=== PATIENT | female | born 1955 | race Caucasian/White ===

== ENCOUNTER 2021-02-26 07:49 | Emergency (ER) | payer BC ==
[~2021-02-26] VITALS: Ht 160 cm; Wt 97.1 kg
[~2021-02-26 07:49] MED LIST: ALLEGRA ALLERGY60 MG PO; CHOLINE SR300 MG PO; CLOBETASOL EMOL15 GM TOP; GELATIN650 MG PO; HAIR, SKIN & N1 EAC1 PO; INOSITOL MISC; MAGNESIUM250 MG PO; METHIONINE MISC; MSM500 MG PO; VITAMIN B122500 MCG PO; VITAMIN D32000 UNI1 PO; VITAMIN D32000 UNIT PO; ZYRTEC10 MG PO; [UNRECOGNIZED DRUG - OTHER] PO
[2021-02-26] MEDS ORDERED: FLONASE ALLERG9.9 ML NAS (09:32)
== END 2021-02-26 09:48 | disposition home or self-care (01) ==
LOC: ED 07:49
DX: J30.9 Allergic rhinitis, unspecified (principal); Z91.040 Latex allergy status; Z88.5 Allergy status to narcotic agent
CPT/HCPCS: 71046; 80053; 84443; 85025; 99285-25

== ENCOUNTER 2023-05-11 06:50 | Day surgery (SDC) | payer BC ==
[2023-04-28 11:04] VITALS: BP 146/88
[~2023-05-11] VITALS: Ht 160 cm; Wt 97.3 kg
[2023-05-11] VITALS (8 sets, daily range): BP systolic 109–151; BP diastolic 51–80
[~2023-05-11 06:50] MED LIST changes: +CYMBALTA30 MG PO; +DICLOFENAC SODI75 MG PO; +FLONASE ALLERG9.9 ML NAS; +HYDROCHLOROTHIA25 MG PO
[2023-05-11] MEDS ORDERED: BIOTIN2500 MC1 PO (07:48)
[2023-05-11] MEDS ORDERED: VITAMIN D310 MC4 PO (07:48)
[2023-05-11] MEDS ORDERED: MULTIVITAMIN1 EACH PO (07:49)
[2023-05-11] MEDS ORDERED: OMEGA 3 FISH O1 EACH PO (07:49)
[2023-05-11] MEDS ORDERED: ASPIRIN325 MG PO (10:25)
[2023-05-11] MEDS ORDERED: HYDROMORPHONE HC2 MG PO (10:25)
[2023-05-11] MEDS ORDERED: DULOXETINE HCL30 MG PO (10:25)
[2023-05-11] MEDS ORDERED: SENNA LAX8.6 MG PO (10:25)
[2023-05-12 01:53] VITALS: BP 117/89
[2023-05-12 06:11] VITALS: BP 117/67
--- NOTE | 2023-05-13 08:14 | OR ---
[facility] [address] [place], [place] [address] Signed DATE OF OPERATION: 05/11/2023 SURGEON: Sravani Muniz MD PREOPERATIVE DIAGNOSIS: Severe degenerative joint disease, right knee. POSTOPERATIVE DIAGNOSIS: Severe degenerative joint disease, right knee. PROCEDURE PERFORMED: Right total knee arthroplasty with Freddy. REGIONAL MERCHANDISING MANAGER: ALESSANDRO Perez. Sobia was present and critical for all portions of the procedure. ANESTHESIA: Spinal. BLOOD LOSS: 175 mL. TOURNIQUET TIME: Zero. IMPLANTS: Ruthy Triathlon size two 9 mm polyethylene and 29 mm patella. BRIEF HISTORY: Slick is a 68-year-old female with progressive worsening of osteoarthritis. She had undergone extended none operative care with substantial improvement. Risks and benefits of operative treatment were discussed with her and she elected to proceed. Once consent was obtained, she was taken to the operating room. After adequate anesthesia, she was placed on the operating table on a hip bump. The leg was then prepped and draped in a standard sterile fashion. Standard anterior approach through a longitudinal incision was carried through skin and subcutaneous tissue. Skin flaps were developed medially and laterally. A low mid vastus arthrotomy was undertaken and the MCL was elevated of a sleeve to the posteromedial corner. The infrapatellar fat pad was excised and the anterior horns of the menisci were released as was the ACL. The PCL was found to be Electronically Signed By: SRAVANI MUNIZ MD 05/13/23 0814 PATIENT NAME: SLICK LOUIS OPERATIVE REPORT DATE OF : 53 REPORT #: [id number] PHYSICIAN: SRAVANI MUNIZ MD PCP: MICHAEL SEGURA NP REPORT IS CONFIDENTIAL AND NOT TO BE RELEASED WITHOUT AUTHORIZATION [facility] [address] [place], [place] [address] Signed intact. The navigation computer arrays were placed in the medial femoral condyle and proximal tibia. The leg was then registered with the computer, followed by the fine anatomic points of the knee. The pes valgus testing was undertaken. The knee was found to be fairly well balanced only minor and adjustments were made. The robot was then brought in the four straight cuts and followed by the 2 angle cuts were made with care taken to protect the patellar tendon and MCL. The bony remnants were removed as were any remaining osteophytes. The posterior osteophytes removed off the femur and the trials were positioned. The knee was taken through range of motion and found to be stable throughout. The patella was centered and tracked well. The patella was cut sized and drilled for a 29 patella. The distal femoral drill holes were completed and the proximal tibia was finished using the keel punch, followed by the drill holes. The trials were removed and the bone surfaces were cleansed. The tibia was impacted in position first followed by the polyethylene. The femur was impacted until it was well seated and then the patella was clamped. The knee was taken through range of motion. Again, the patella was found to be well centered. The wound was copiously irrigated with Surgiphor, followed by normal saline. The periarticular soft tissues were injected with 100 mL ropivacaine Toradol mixture. The On-Q pain pump was percutaneously placed into the adductor canal from the suprapatellar pouch. The arthrotomy was then closed using FiberWire followed by #2 StrataFix, the subcutaneous tissue with #0 StrataFix, and the skin with 3-0 Stratafix. The wound was sealed with LiquiBand and Steri-Strips. Wound was dressed with Acticoat 7 dressing, ABD, ABDs and Tejinder wrap. She tolerated the procedure well. All sponge, needle, and instrument counts were correct. Sravani Muniz MD BA/MODL /[id number] Copies: ~ Electronically Signed By: SRAVANI MUNIZ MD 05/13/23 0814 PATIENT NAME: SLICK LOUIS OPERATIVE REPORT DATE OF : 53 REPORT #: [id number] PHYSICIAN: SRAVANI MUNIZ MD PCP: MICHAEL SEGURA NP REPORT IS CONFIDENTIAL AND NOT TO BE RELEASED WITHOUT AUTHORIZATION
== END 2023-05-12 10:47 | disposition home or self-care (01) ==
LOC: DS 06:50 → MS 18:05 → DS 05-12 10:47
PROVIDERS: ATTEND Specialist
PROC: 3E0T3BZ Introduction of Anesthetic Agent into Peripheral Nerves and Plexi, Percutaneous Approach (ICD-10-PCS; 2023-05-11)
PROC: 0SRC0JZ Replacement of Right Knee Joint with Synthetic Substitute, Open Approach (ICD-10-PCS; principal; 2023-05-11 09:05)
DX: M17.11 Unilateral primary osteoarthritis, right knee (principal); I10 Essential (primary) hypertension; Z88.5 Allergy status to narcotic agent; Z91.040 Latex allergy status
CPT/HCPCS: 01400; 64447; 64450; 76942; 97116; 97161; 97530; C1713; C1776; J0690; J0735; J1100; J1200; J1885; J2001; J2250; J2300; J2405; J2704; J2795; J3490; J7030; J7121

== ENCOUNTER 2023-08-24 06:52 | Day surgery (SDC) | payer BC ==
[2023-08-11 11:36] VITALS: BP 152/92
[~2023-08-24] VITALS: Ht 160 cm; Wt 92.7 kg
[~2023-08-24 06:52] MED LIST changes: +ASPIRIN325 MG PO; +BIOTIN2500 MC1 PO; +DULOXETINE HCL30 MG PO; +HYDROMORPHONE HC2 MG PO; +MULTIVITAMIN1 EACH PO; +OMEGA 3 FISH O1 EACH PO; +SENNA LAX8.6 MG PO; +VITAMIN D310 MC4 PO
[2023-08-24 07:06] VITALS: BP 164/81
--- NOTE | 2023-08-24 09:11 | NUR ---
DS ROUNDS. 15 MINUTES. PROVIDED SUPPORTIVE PRESENCE. PROVIDED PRAYER. PT EXPRESSED GRATITUDE.
--- NOTE | 2023-08-24 09:35 | NUR ---
PATIENT BACK TO ROOM 5 FROM PACU ON RA. RECEIVED REPORT FROM DORA MONTERO. PATIENT IS AWAKE. RESP EVEN AND UNLABORED. RATES PAIN 3/10 AND THIS IS TOLERABLE FOR HER. DENIES NAUSEA. DRESSING IS CLEAN, DRY, AND INTACT. ON-Q PUMP SET AT 4. CRYO CUFF IN PLACE. CALL LIGHT WITHIN REACH.
--- NOTE | 2023-08-24 11:15 | NUR ---
08/24/23 1115 Yudith Jackson 1050 PT TO PACU FROM OR PER STRETCHER. RESPIRATIONS MAICOL AND UNLABORED. PT DROWSY. ON Q IN PLACE INFUSING AT 4 ML/HR. DRSG TO L KNEE CDI. CRYO CUFF APPLIED. 1058 PT DROWSY, BUT ORIENTED. NO COMPLAINTS AT THIS TIME. 1105 PT REPORTS TINGLING SENSATION IN L KNEE. 1108 PT SPINAL LEVEL NOW AT L3, CAN SLIGHTLY WIGGLE TOES. DRSG TO L KNEE CDI, GOOD CMS TO LLE
[2023-08-24 11:33] VITALS: BP 110/74
[2023-08-24 12:30] VITALS: BP 138/69
--- NOTE | 2023-08-24 12:51 | NUR ---
1155-PATIENT STATES PAIN IS INCREASING ON THE BACKSIDE OF HER LEFT KNEE. RATES PAIN A 5/10. PATIENT ALSO STATES SHE NEEDS TO USE THE RESTROOM. 1200-PATIENT UP TO BEDSIDE COMMODE WITH 2 RN ASSIST. GAIN STEADY AND TOLERATED WELL. PATIENT VOIDS 600ML OF YELLOW URINE. 1209-PATIENT BACK TO BED WTIH RN ASSIST. TOLERATED WELL. MOVED ICE PACK TO BACK SIDE OF LEFT KNEE TO HELP WITH PAIN. PROVIDED PATIENT WITH A CRACKERS AND SHE IS TAKING SIPS OF WATER. 1223-PAIN MEDICTION GIVEN PER EMAR.
--- NOTE | 2023-08-24 12:58 | NUR ---
1230-PATIENT LAYING IN BED AWAKE. RESP EVEN AND UNLABORED. RATES PAIN A 3/10 AND DENIES NAUSEA. DRESSING IS CLEAN, DRY, AND INTACT. ON-Q PUMP SET AT 4. CRYO CUFF IN PLACE AND RUNNING. PATIENT STATES IMPROVEMENT IN PAIN WITH CRYO CUFF PLACED ON BACK OF KNEE. IN ROOM CALL LIGHT WITHIN REACH.
[2023-08-24 13:28] VITALS: BP 130/66
--- NOTE | 2023-08-24 13:50 | NUR ---
1345-PT IN ROOM WITH PATIENT.
--- NOTE | 2023-08-24 14:43 | NUR ---
1416-PATEINT BACK TO ROOM FROM PT. SOCORRO FROM PT STATES PATIENT GOT NAUSEATED, DIZZY, AND SWEATY AFTER DOING THE STAIRS. 1420-WENT DOWN STAIRS TO GET PATIENT SOUP. 1420-PATIENT STILL FEELS A LITTLE DIZZY. PT WILL BE TO WORK WITH PATIENT AGAIN IN A LITTLE WHILE.
--- NOTE | 2023-08-24 14:45 | NUR ---
PATIENT LAYING IN BED. DENIES PAIN AND NAUSEA. PATIENT EATING SOUP AND DRINKING WATER. DRESSING IS CLEAN, DRY, AND INTACT. CRYO CUFF IN PLACE AND RUNNING. ON-Q PUMP SET AT 4. CALL LIGHT WITHIN REACH.
[2023-08-24 14:49] VITALS: BP 123/55
--- NOTE | 2023-08-24 15:19 | NUR ---
1519-PT IN ROOM WITH PATIENT. 1535-PATIENT BACK IN ROOM AND LAYING IN BED.
[2023-08-24 15:38] VITALS: BP 120/62
--- NOTE | 2023-08-24 15:40 | NUR ---
PATIENT SITTING UP IN BED. DENIES PAIN AND NAUSEA. RESP EVEN AND UNLABORED. CRYO CUFF IN PLACE AND RUNNING. ON-Q PUMP SET AT 4. PATIENT DENIES DIZZINESS AND LIGHTHEADEDNESS. PATIENT WOUND LIKE TO GET DRESSED. WALKER AT BEDSIDE FOR PATIENT TO USE AND CALL LIGHT WITHIN REACH.
--- NOTE | 2023-08-24 16:20 | NUR ---
1615-WENT OVER DISHCARGE INSTRUCTIONS WITH GEMA AND HER . WENT OVER MEDICATIONS AND TIMES TO TAKE THEM. ALL QUESTIONS ANSWERED. MAY STATES A LITTLE PAIN BACK OF THIGH AFTER GETTING. ADVISED PATIENT TO CALL THE AFTER HOURS NUMBER IF PAIN INCREASES. PATIENT VERBALIZED UNDERESTANDING. 1620-PATIENT AMBULATES WITH WALKER TO WHEELCHAIR AND RIDE GIVEN TO FRONT OF HOSPITAL WHERE RIDE WAS WAITING WITH THE CAR.
--- NOTE | 2023-08-27 17:59 | OR ---
[facility] [address] [facility] [place], [place] [address] Signed DATE OF OPERATION: 08/24/2023 SURGEON: Sravani Muniz MD PREOPERATIVE DIAGNOSIS: Left knee degenerative joint disease. POSTOPERATIVE DIAGNOSIS: Left knee degenerative joint disease. PROCEDURE PERFORMED: Left total knee arthroplasty with Freddy. PLASTIC SURGERY MANAGER: Sobia Mustafa PA-C. Sobia was present and critical for all portions of procedure. ANESTHESIA: Spinal. BLOOD LOSS: 225 mL. TOURNIQUET TIME: Zero. IMPLANTS: Ruthy Triathlon size 2, 10 mm polyethylene and 29 mm patella. BRIEF HISTORY: Slick is a 68-year-old female with progressive worsening of osteoarthritis. She had undergone right total knee with good results, wished to proceed with the left. Risks, benefits, and alternatives were discussed with her and she understood and wished to proceed. DESCRIPTION OF PROCEDURE: Once consent was obtained, she was taken to the operating room. After adequate anesthesia, she was placed on the operating room table with a hip bump. The leg was then prepped and draped in a standard sterile fashion. The knee was approached through a standard anterior midline incision. This was carried through the skin and Electronically Signed By: SRAVANI MUNIZ MD 08/27/23 1759 PATIENT NAME: SLICK LOUIS OPERATIVE REPORT DATE OF : 53 REPORT #: [id number] PHYSICIAN: SRAVANI MUNZI MD PCP: MICHAEL SEGURA NP REPORT IS CONFIDENTIAL AND NOT TO BE RELEASED WITHOUT AUTHORIZATION [facility] [address] [place], [place] [address] Signed subcutaneous tissue. Midvastus arthrotomy was performed and the infrapatellar fat pad was excised. The MCL was elevated as a subperiosteal sleeve to the posteromedial corner. The anterior horns of the menisci were transected as was the ACL. PCL was found to be intact. The navigation computer arrays were then placed in the medial femoral condyle and proximal tibia. The leg was then registered with the computer followed by the fine anatomic points of the knee. Varus and valgus testing was undertaken with only 1 degree change to the femoral alignment. The robot was then brought in, 4 straight cuts and 2 angle cuts were made with care taken to protect the patellar tendon and MCL. The bony remnants were removed as were any remaining osteophytes. The posterior osteophytes were removed off the femur and no posterior release was performed. The trials were then positioned. Knee was taken through range of motion from 0-130 degrees with excellent stability. The patella was cut sized and drilled for a 29 mm patella and this was noted to track well. The distal femur was finished using the drill. The proximal tibia was finished using the keel punch followed by the drill guide. The tibia was impacted in position first until it was well seated and flushed. The polyethylene was snapped into position and the femur was impacted. The knee was again extended and loaded. The patella was clamped into position until it was flushed. The knee was taken through range of motion. Again, the patella tracked very nicely. The periarticular soft tissues were injected with 100 mL of ropivacaine and Toradol mixture. The On-Q pain pump was percutaneously placed into the adductor canal from the suprapatellar pouch. The arthrotomy was then closed after irrigation with Surgiphor followed by normal saline. The arthrotomy was closed using #2 FiberWire and #2 Stratafix, subcutaneous tissue with 0 Stratafix and the skin with 3-0 Stratafix. The wound was sealed with LiquiBand and Steri-Strips. The wound was dressed with Acticoat-7, ABDs and Tejinder wrap. She tolerated the procedure well. All sponge, needle, and instrument counts were correct. Sravani Muniz MD BA/MODL /[id number] Electronically Signed By: SRAVANI MUNIZ MD 08/27/23 1759 PATIENT NAME: SLICK LOUIS OPERATIVE REPORT DATE OF : 53 REPORT #: [id number] PHYSICIAN: SRAVANI MUNIZ MD PCP: MICHAEL SEGURA NP REPORT IS CONFIDENTIAL AND NOT TO BE RELEASED WITHOUT AUTHORIZATION [facility] [address] [place] [address] [place], [place] [address] Signed Copies: ~ Electronically Signed By: SRAVANI MUNIZ MD 08/27/23 1759 PATIENT NAME: SLICK LOUIS OPERATIVE REPORT DATE OF : 53 REPORT #: [id number] PHYSICIAN: SRAVANI MUNIZ MD PCP: MICHAEL SEGURA NP REPORT IS CONFIDENTIAL AND NOT TO BE RELEASED WITHOUT AUTHORIZATION
== END 2023-08-24 16:20 | disposition home or self-care (01) ==
LOC: DS 06:52
PROVIDERS: ATTEND Specialist
PROC: 0SRD0JZ Replacement of Left Knee Joint with Synthetic Substitute, Open Approach (ICD-10-PCS; principal; 2023-08-24 09:05)
DX: M17.12 Unilateral primary osteoarthritis, left knee (principal); I10 Essential (primary) hypertension; Z79.899 Other long term (current) drug therapy
CPT/HCPCS: 01400; 64447; 76942; 97161; A9270; C1713; C1776; J0131; J0690; J1100; J1885; J2001; J2250; J2405; J2704; J2795; J7121

== ENCOUNTER 2024-05-08 12:06 | Emergency (ER) | payer BC ==
[~2024-05-08] VITALS: Ht 160 cm; Wt 91.7 kg
[2024-05-08] MEDS ORDERED: COZAAR25 MG PO (12:55)
[2024-05-08] MEDS ORDERED: FLUORESCEIN SOD 1 EA STRP OD ONE (13:00)
[2024-05-08] MEDS ORDERED: VALACYCLOVIR HCL 500 MG TAB PO ONE ×2 (13:00→14:30)
[2024-05-08] MEDS ORDERED: TETRACAINE HCL 0.5% 4 ML BTL OD SCH (13:15)
[2024-05-08] MEDS ORDERED: VALTREX1000 MG PO (14:28)
[2024-05-08 14:34] VITALS: BP 158/83
== END 2024-05-08 14:36 | disposition home or self-care (01) ==
LOC: ED 12:06
DX: B02.9 Zoster without complications (principal); Z88.5 Allergy status to narcotic agent; Z91.040 Latex allergy status; Z79.899 Other long term (current) drug therapy
CPT/HCPCS: 99282

== ENCOUNTER 2024-09-13 08:20 | Day surgery (SDC) | payer BC ==
[~2024-09-13] VITALS: Ht 157.5 cm; Wt 92.3 kg
[~2024-09-13 08:20] MED LIST changes: +CEFAZOLIN SODIUM 2 GM/20 ML SYR IV SCH; +CLOBETASOL PROP15 G3 TP; +COZAAR25 MG PO; +IBLOOD GLUCOSE TEST STRIP 1 EA TEST VI PRN; +LACTATED RINGER'S 1,000 ML IV SCH; +LIDOCAINE HCL 1% 5 ML SDV INJ ONE; +MIDAZOLAM HCL 5 MG/5 ML VIAL IV PRN; +VALTREX1000 MG PO; +fentaNYL citrate 100 MCG/2 ML VIAL IV PRN
[2024-09-13 08:40] VITALS: BP 146/73
--- NOTE | 2024-09-13 09:24 | NUR ---
AT BS. PT COMFORTABLE.
[2024-09-13] MEDS ORDERED: fentaNYL citrate 100 MCG/2 ML VIAL ONE (09:44)
[2024-09-13] MEDS ORDERED: MIDAZOLAM HCL 5 MG/5 ML VIAL ONE (09:44)
--- NOTE | 2024-09-13 10:39 | NUR ---
09/13/24 1039 Ellen Granado 1031 PT ARRIVED TO PACU ON 2L VIA NC, PT WAKES AND IS REORIENTED TO PACU. PT DENIES CONCERNS AND EASILY FALLS BACK TO SLEEP. PT PASING GAS OFF AND ON.
[2024-09-13 11:02] VITALS: BP 138/83
--- NOTE | 2024-09-13 16:03 | OR ---
[facility] [address] [place], [place] [address] Signed DATE OF OPERATION: 09/13/2024 SURGEON: Yesika Tsang MD PREOPERATIVE DIAGNOSES: 1. Tortuous sigmoid colon. 2. Redundant colon. 3. Diverticulosis. 4. Internal hemorrhoids. 5. Personal history of tubular adenomatous polyp in 2019 at age 63. 6. Brother diagnosed with Crohn's disease in his early 20s. POSTOPERATIVE DIAGNOSES: 1. Tortuous sigmoid colon. 2. Moderate left-sided diverticulosis. 3. Minimal to moderate internal hemorrhoids. PROCEDURE: Colonoscopy without biopsy. ESTIMATED BLOOD LOSS: None. INDICATIONS: Tori is a 69-year-old female, asked to see me for followup colonoscopy. I helped her with her initial screening colonoscopy in 2019 at the age of 63. She had a moderately tortuous sigmoid colon and a redundant colon. She also has diverticular disease. She had internal hemorrhoids. We did remove a small 4 mm tubular adenomatous polyp. She did well with 5 mg of Versed and 100 mcg of fentanyl. Of course, we asked her to follow up in 5 years. She reminded me that her brother was diagnosed with Crohn's disease in his early 20s. Otherwise, no family history of colon cancer or polyps. She has no lower GI complaints. She does have bilateral knee replacement, so we did give her Ancef before we started the procedure. In the office, I gave her our brochure on colonoscopy. She remembers the nature of the test. There is risk including, but not limited to gas bloating, crampy abdominal pain, bleeding, perforation requiring surgery, and missed diagnosis. We also had reviewed her medications carefully. She also recalls the need for IV conscious sedation. Again, she has done well with Versed and fentanyl in the past. Her is usually available to take her home afterwards. She had expressed understanding and wished to proceed. Electronically Signed By: YESIKA TSANG MD 09/13/24 1603 PATIENT NAME: TORI LOUIS OPERATIVE REPORT DATE OF : 53 REPORT #: [id number] PHYSICIAN: YESIKA TSANG MD PCP: MICHAEL SEGURA NP REPORT IS CONFIDENTIAL AND NOT TO BE RELEASED WITHOUT AUTHORIZATION [facility] [address] [place], [place] [address] Signed DESCRIPTION OF PROCEDURE: Tori was taken into our endoscopy suite and placed in the left lateral decubitus position. She was given a total of 6 mg of Versed and 125 mcg of fentanyl to cover the case. Once again, we found that she has a very tortuous sigmoid colon with diverticulosis. She was much more awake on this occasion and moaning in pain and her blood pressure goes high in the 190s. We took frequent breaks. We did eventually make it into the cecum, but I think in the future she would be much better served with monitored anesthesia care and propofol infusion. On her digital rectal exam, she has good sphincter tone. Really no external hemorrhoids. There were no masses. The adult colonoscope had been inserted and again advanced up through a difficult tortuous sigmoid colon. The scope continued to drag in the sigmoid colon. We had to stop frequently, give more medication and use abdominal compression in order to get the scope into the cecum itself. Overall, her prep was quite good. She had a few areas of liquid stool that were easily suctioned out. We could easily see the appendiceal orifice and the ileocecal valve. The scope was then slowly withdrawn. On this occasion, it did not seem her colon was so long redundant, but was certainly tortuous in the sigmoid area. Again, we came back down the left colon and sigmoid colon found her diverticula. They were moderate in size, minimal to moderate in number and scattered about. Once in the rectum, the scope was retroflexed and she just has minimal to moderate internal hemorrhoid columns. After this, the gas was suctioned out and the colonoscope removed. Overall, Tori tolerated the procedure. RECOMMENDATIONS: Tori will stay on the five year plan due to her personal history of an adenomatous polyp in 2019 at the age of 63. She would probably be better served particularly at age 74 with monitored anesthesia care using propofol infusion given as described above.. Yesika Tsang MD ALB/MODL /[id number] cc: WALTER Renteria MD Electronically Signed By: YESIKA TSANG MD 09/13/24 1603 PATIENT NAME: TORI LOUIS OPERATIVE REPORT DATE OF : 53 REPORT #: [id number] PHYSICIAN: YESIKA TSANG MD PCP: MICHAEL SEGURA NP REPORT IS CONFIDENTIAL AND NOT TO BE RELEASED WITHOUT AUTHORIZATION [address] [address] Signed Copies: YESIKA TSANG MD ~ Electronically Signed By: YESIKA TSANG MD 09/13/24 1603 PATIENT NAME: TORI LOUIS OPERATIVE REPORT DATE OF : 53 REPORT #: [id number] PHYSICIAN: YESIKA TSANG MD PCP: MICHAEL SEGURA NP REPORT IS CONFIDENTIAL AND NOT TO BE RELEASED WITHOUT AUTHORIZATION
== END 2024-09-13 11:11 | disposition home or self-care (01) ==
LOC: DS 08:20
PROVIDERS: ATTEND Colon & Rectal Surgery
PROC: 0DJD8ZZ Inspection of Lower Intestinal Tract, Via Natural or Artificial Opening Endoscopic (ICD-10-PCS; principal; 2024-09-13 09:45)
DX: K63.89 Other specified diseases of intestine (principal); K57.30 Diverticulosis of large intestine without perforation or abscess without bleeding; K64.8 Other hemorrhoids; I10 Essential (primary) hypertension; E66.9 Obesity, unspecified; Z68.37 Body mass index [BMI] 37.0-37.9, adult; Z79.899 Other long term (current) drug therapy; Z83.79 Family history of other diseases of the digestive system; Z88.5 Allergy status to narcotic agent; Z86.0101 Personal history of adenomatous and serrated colon polyps
CPT/HCPCS: 99153; G0500; J0690; J2250; J3010; J7121